=== PATIENT | male | born 1970 | race African-American/Black ===

== ENCOUNTER 2019-11-03 12:14 | Emergency (ER) | payer SELFPAY ==
[~2019-11-03] VITALS: Ht 177.8 cm; Wt 79.5 kg
[2019-11-03 12:30] VITALS: BP 161/95
--- NOTE | 2019-11-03 12:37 | PHYS DOC ---
Past Medical History Past Medical History: No Pertinent History Past Surgical History: No Surgical History Alcohol Use: None Drug Use: None Adult General Chief Complaint Chief Complaint: LACERATION/AVULSION HPI HPI Patient is a 49 year old male who presents with a fall that occurred around 30 minutes prior to arrival. The patient states she's carrying stuff into the house and slipped and fell on a step and bumped his head on the step. The patient has negative loss of consciousness, is not on any blood thinners. The patient states she's having pain in the left orbital area. Patient also has a laceration to the lip from when he fell his tooth hit his lip. Denies any other symptoms. Complete ROS were reviewed and found to be within normal limits, except as documented in the HPI Current Medications Current Medications Current Medications Medications (Trade) Dose Ordered Sig/Thu Start Time Stop Time Status Last Admin Dose Admin Lidocaine HCl 20 ml 1X STAT 11/03/19 12:38 11/03/19 12:41 DC 11/03/19 12:53 20 ML Allergies Allergies Allergies Coded Allergies Type Severity Reaction Last Updated Verified No Known Drug Allergies 09/13/13 No Physical Exam Physical Exam Constitutional: Well developed, well nourished, no acute distress, non-toxic appearance. [] HENT: Normocephalic, has swelling to the left forehead/orbital area, bilateral external ears normal, oropharynx moist, no oral exudates, nose normal. [] Eyes: PERRLA, EOMI, conjunctiva normal, no discharge. [] Neck: Normal range of motion, no tenderness, supple, no stridor. [] Cardiovascular:Heart rate regular rhythm, no murmur [] Lungs & Thorax: Bilateral breath sounds clear to auscultation [] Skin: laceration to the lip, does not involve selena border. Back: No tenderness, no CVA tenderness. [] Extremities: No tenderness, no cyanosis, no clubbing, ROM intact, no edema. [] Neurologic: Alert and oriented X 3, normal motor function, normal sensory function, no focal deficits noted. [] Psychologic: Affect normal, judgement normal, mood normal. [] Current Patient Data Vital Signs Vital Signs Date Time Temp Pulse Resp B/P (MAP) Pulse Ox O2 Delivery O2 Flow Rate FiO2 11/03/19 12:30 98.6 80 18 161/95 (117) 98 Room Air 98.6 EKG EKG [] Radiology/Procedures Radiology/Procedures Indication: Lip laceration Procedure: The patient was placed in the appropriate position. The area was then debrided with normal saline. The laceration was closed with 5-0 fast absorbing gut (6). Total repaired wound length: 0.5 cm. The patient tolerated the procedure. [] [id number] [place] [address] IMAGING REPORT Signed PATIENT: MINA OWENS ACCOUNT: [id number] : 1970 LOCATION: ER AGE: 49 SEX: M EXAM STATUS: REG ER ORD. PHYSICIAN: BRIAN BROWN APRN REASON: fall, lip laceration, left orbital swelling PROCEDURE: CT CERVICAL SPINE WO CONTRAST STUDY: 1. CT head without contrast 2. CT maxillofacial without contrast 3. CT cervical spine without contrast INDICATION: Fall. Lip laceration. Left orbital swelling. COMPARISON: None. TECHNIQUE: Axial CT imaging of the head, maxillofacial structures and cervical spine performed without the use of intravenous contrast. Sagittal and coronal reformats were obtained. One or more of the following individualized dose reduction techniques were utilized for this examination: 1. Automated exposure control 2. Adjustment of the mA and/or kV according to patient size 3. Use of iterative reconstruction technique. FINDINGS: CT HEAD: No acute intracranial hemorrhage. Paz-white matter differentiation is maintained. No mass effect, midline shift or hydrocephalus. No large scalp hematoma. No depressed calvarial fracture. CT MAXILLOFACIAL: No acute facial fracture. No CT evidence for injury to the globes. No retrobulbar hematoma. Temporomandibular joint alignment is maintained. No layering fluid within the paranasal sinuses. Normally aerated middle ears. Nonopacified mastoid air cells. CT CERVICAL SPINE: No acute fracture or traumatic malalignment. Straightening of cervical lordosis. 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 Multifactorial degenerative changes most pronounced at C5-C6 and C6-C7 with bilateral osseous neural foraminal encroachment at these levels and suspected moderate central canal stenosis though incompletely assessed. IMPRESSION: CT HEAD: 1. No acute intracranial abnormality by CT. CT MAXILLOFACIAL: 1. No facial bone fracture or temporomandibular joint malalignment. Unremarkable globes and retrobulbar soft tissues. CT CERVICAL SPINE: 1. No acute fracture or traumatic malalignment. 2. Multifactorial degenerative changes most pronounced at C5-C6 and C6-C7. Electronically signed by: EDUARD IRVING MD (11/03/2019 1:27 PM) [facility] DICTATED and SIGNED BY: EDUARD IRVING MD DATE: 11/03/19 2078 Course & Med Decision Making Course & Med Decision Making Pertinent Labs and Imaging studies reviewed. (See chart for details) Will get CT of head/face/neck and then will repair laceration. Dragon Disclaimer Dragon Disclaimer This electronic medical record was generated, in whole or in part, using a voice recognition dictation system. Departure Departure Impression: Primary Impression: Lip laceration Disposition: 01 HOME, SELF-CARE Condition: STABLE Referrals: NO PCP (PCP) Patient Instructions: Facial Laceration, Laceration Care, Adult Additional Instructions: Thank you for visiting [facility]. We appreciate you trusting us with your care. If any additional problems come up don't hesitate to return to visit us. Please follow up with your primary care provider so they can plan additional care if needed and know about the problem that you had. If symptoms worsen come back to the Emergency Department. Any concerning symptoms that start such as chest pain, shortness of air, weakness or numbness on one side of the body, running high fevers or any other concerning symptoms return to the ER. You have been prescribed an antibiotic today to help fight your infection. Please take all of the antibiotic as directed. If after 48 hours the infection is not improving, please return for more care. If the infection worsens, return to ER for additional care. Scripts Cephalexin (KEFLEX) 500 Mg Capsule 1 CAP PO QID for 5 Days, #20 CAP 0 Refills Prov: BRIAN BROWN APRN 11/03/19 Problem Qualifiers Primary Impression: Lip laceration Encounter type: initial encounter Qualified Codes: S01.511A - Laceration without foreign body of lip, initial encounter BRIAN BROWN APRN Nov 03, 2019 12:37
[2019-11-03] MEDS ORDERED: LIDOCAINE 2% 20 ML VIAL. IJ STA (12:38)
--- NOTE | 2019-11-03 13:30 | RAD ---
STUDY: 1. CT head without contrast 2. CT maxillofacial without contrast 3. CT cervical spine without contrast INDICATION: Fall. Lip laceration. Left orbital swelling. COMPARISON: None. TECHNIQUE: Axial CT imaging of the head, maxillofacial structures and cervical spine performed without the use of intravenous contrast. Sagittal and coronal reformats were obtained. One or more of the following individualized dose reduction techniques were utilized for this examination: 1. Automated exposure control 2. Adjustment of the mA and/or kV according to patient size 3. Use of iterative reconstruction technique. FINDINGS: CT HEAD: No acute intracranial hemorrhage. Paz-white matter differentiation is maintained. No mass effect, midline shift or hydrocephalus. No large scalp hematoma. No depressed calvarial fracture. CT MAXILLOFACIAL: No acute facial fracture. No CT evidence for injury to the globes. No retrobulbar hematoma. Temporomandibular joint alignment is maintained. No layering fluid within the paranasal sinuses. Normally aerated middle ears. Nonopacified mastoid air cells. CT CERVICAL SPINE: No acute fracture or traumatic malalignment. Straightening of cervical lordosis. 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 Multifactorial degenerative changes most pronounced at C5-C6 and C6-C7 with bilateral osseous neural foraminal encroachment at these levels and suspected moderate central canal stenosis though incompletely assessed. IMPRESSION: CT HEAD: 1. No acute intracranial abnormality by CT. CT MAXILLOFACIAL: 1. No facial bone fracture or temporomandibular joint malalignment. Unremarkable globes and retrobulbar soft tissues. CT CERVICAL SPINE: 1. No acute fracture or traumatic malalignment. 2. Multifactorial degenerative changes most pronounced at C5-C6 and C6-C7. Electronically signed by: EDUARD IRVING MD (11/03/2019 1:27 PM) [place] [id number]
[2019-11-03] MEDS ORDERED: NEOMY/BACITR/POLYMYXIN OINT PACKET. TP STA (14:41)
[2019-11-03] MEDS ORDERED: CEPH-264 PO (14:45)
[2019-11-03] MEDS ORDERED: DIPHTH,PERTUSS(ACELL),TET TOX 0.5 ML DISP.SYRIN. VAX IM ONE (14:45)
== END 2019-11-03 15:14 | disposition home or self-care (01) ==
LOC: ER 12:14
DX: S01.511A Laceration without foreign body of lip, initial encounter (principal); H57.12 Ocular pain, left eye; W01.0XXA Fall on same level from slipping, tripping and stumbling without subsequent striking against object, initial encounter; Y93.89 Activity, other specified; Y92.89 Other specified places as the place of occurrence of the external cause; Y99.8 Other external cause status
CPT/HCPCS: 12011; 70450; 70486; 72125; 90471; 90715; 99284; J2001